=== PATIENT | male | born 1945 | race Hispanic/Latino ===

== ENCOUNTER → 2020-11-09 | Outpatient (CLI) | payer OTHER | END | disposition home or self-care (01) | LOC: RAH 08:40 | PROVIDERS: ATTEND Internal Medicine | DX: K80.20 Calculus of gallbladder without cholecystitis without obstruction (principal); K76.89 Other specified diseases of liver; R94.5 Abnormal results of liver function studies | CPT/HCPCS: 76700; 93975 ==